=== PATIENT | male | born 1995 | race Caucasian/White ===

== ENCOUNTER 2018-12-17 09:41 | Emergency (ER) | payer OTHER ==
[2018-12-17 09:39] LABS: AMYLASE 625 IU/L (25-115)
[2018-12-17] MEDS ORDERED: ONDANSETRON HCL 4 MG/2 ML SOL ONE (09:51)
[2018-12-17] MEDS ORDERED: ONDANSETRON HCL 4 MG/2 ML SOL IV ONE (09:52)
[2018-12-17] MEDS: SODIUM CHLORIDE 0.9% FLUSH 10 ML SOL IV PRN ×2 (10:00→10:05)
[2018-12-17] MEDS ORDERED: SODIUM CHLORIDE 0.9% 1000ML 1,000 ML IV ONE ×4 (10:00→13:00)
[2018-12-17] MEDS ORDERED: MORPHINE SULFATE 10 MG/ML SOL IV ONE (10:00)
[2018-12-17] MEDS ORDERED: MORPHINE SULFATE 10 MG/ML SOL ONE (10:14)
[2018-12-17] MEDS ORDERED: SODIUM CHLORIDE 0.9% 50 ML 25 ML IV PRN (10:48)
[2018-12-17] MEDS ORDERED: HYDROMORPHONE 1 MG/ML SYRINGE IV PRN (10:49)
[2018-12-17] MEDS ORDERED: HYDROMORPHONE 1 MG/ML SYRINGE ONE (10:53)
[2018-12-17] MEDS ORDERED: VANCOMYCIN HCL 500 MG PDS 1,000 MG in SODIUM CHLORIDE 0.9% 250 ML 250 ML IV SCH (11:00)
[2018-12-17] MEDS ORDERED: PIPERACILLIN/TAZOBACT 3.375 GM 3.375 GM in SODIUM CHLORIDE 0.9% 100 ML 100 ML IV SCH (11:00)
[2018-12-17] MEDS ORDERED: PIPERACILLIN/TAZOBACT 3.375 GM PDS IV ONE (11:02)
[2018-12-17 11:07] LABS: HEMATOCRIT 51 % (39-53); HEMOGLOBIN 17.2 gm/dl (13.5-17.7); MEAN CORPUSCULAR HEMOGLOBIN 28.8 pg (27.0-32.0); MEAN CORPUSCULAR HGB CONC 33.3 gm/dl (32.0-36.0); MEAN CORPUSCULAR VOLUME 86 fL (80-100)
[2018-12-17 11:12] LABS: LACTIC ACID 3.1 mMol/L (0.0-2.0)
[2018-12-17 11:23] LABS: BAND NEUTROPHILS % (MANUAL) 36 %; NEUTROPHILS % (MANUAL) 50 % (37-80)
[2018-12-17 11:24] LABS: BASOPHILS % (MANUAL) 0 % (0-3); EOSINOPHILS % (MANUAL) 0 % (0-9); LYMPHOCYTES % (MANUAL) 3 % (10-50); MONOCYTES % (MANUAL) 11 % (0-12); NORMAL RBCS PRESENT
[2018-12-17 11:32] VITALS: RESP 16; TEMP 97.7
[2018-12-17] MEDS ORDERED: VANCOMYCIN HYDROCHLORIDE 500 MG PDS IV ONE (11:34)
[2018-12-17 11:39] LABS: ALBUMIN 3.2 gm/dl (3.4-5.0); BILIRUBIN,DIRECT 0.3 mg/dl (0.0-0.2); BILIRUBIN,TOTAL 1.4 mg/dl (0.2-1.0); CALCIUM 9.6 mg/dl (8.5-10.1); CARBON DIOXIDE 26.2 mEq/L (21-32); CREATININE 2.45 mg/dl (0.80-1.30); TOTAL PROTEIN 7.1 gm/dl (6.4-8.2)
[2018-12-17 11:55] LABS: CRP INFLAMMATORY 48.11 mg/dl (0.00-0.33)
[2018-12-17 12:25] VITALS: O2SAT 94
[2018-12-17 13:28] VITALS: BP 129/59; PULSE 117
== END 2018-12-17 13:04 | disposition short-term general hospital (02) | DRG 439 ==
LOC: ED 09:41
DX: K85.90 Acute pancreatitis without necrosis or infection, unspecified (principal); N17.9 Acute kidney failure, unspecified; E87.6 Hypokalemia; R10.9 Unspecified abdominal pain; R11.2 Nausea with vomiting, unspecified; D72.829 Elevated white blood cell count, unspecified; K80.80 Other cholelithiasis without obstruction
CPT/HCPCS: 36415; 74176; 80053; 82150; 82248; 85007; 85027; 85651; 87040; 96365; 96366; 96374; 96375; 99291; J2270; J2405; J2543; J3370; J1170

== ENCOUNTER 2019-01-16 09:27 | Emergency (ER) | payer MEDICARE ==
[2019-01-16] MEDS ORDERED: SODIUM CHLORIDE 0.9% 1000ML 1,000 ML IV SCH (10:00)
[2019-01-16 10:06] LABS: BASOPHILS % (AUTO) 1 % (0-3); EOSINOPHILS % (AUTO) 0 % (0-9); HEMATOCRIT 33 % (39-53); HEMOGLOBIN 11.1 gm/dl (13.5-17.7); LYMPHOCYTES % (AUTO) 4.9 % (10-50); MEAN CORPUSCULAR HEMOGLOBIN 27.9 pg (27.0-32.0); MEAN CORPUSCULAR HGB CONC 33.5 gm/dl (32.0-36.0); MEAN CORPUSCULAR VOLUME 83 fL (80-100); MONOCYTES % (AUTO) 8.7 % (0-12); NEUTROPHILS % (AUTO) 85.7 % (37-80)
[2019-01-16 10:18] LABS: ALBUMIN 2.3 gm/dl (3.4-5.0); BILIRUBIN,TOTAL 1.6 mg/dl (0.2-1.0); CALCIUM 8.8 mg/dl (8.5-10.1); CARBON DIOXIDE 25.4 mEq/L (21-32); CREATININE 1.08 mg/dl (0.80-1.30); POTASSIUM 3.5 mMol/L (3.5-5.1); TOTAL PROTEIN 7.5 gm/dl (6.4-8.2)
[2019-01-16] MEDS ORDERED: HYDROMORPHONE 1 MG/ML SYRINGE IV PRN (10:32)
[2019-01-16] MEDS ORDERED: ONDANSETRON HCL 4 MG/2 ML SOL IV ONE (10:34)
[2019-01-16] MEDS ORDERED: SODIUM CHLORIDE 0.9% FLUSH 10 ML SOL IV PRN (10:34)
[2019-01-16] MEDS ORDERED: HYDROMORPHONE 1 MG/ML SYRINGE ONE (10:37)
[2019-01-16] MEDS ORDERED: ONDANSETRON HCL 4 MG/2 ML SOL ONE (10:37)
[2019-01-16] MEDS ORDERED: PIPERACILLIN/TAZOBACT 3.375 GM 3.375 GM in SODIUM CHLORIDE 0.9% 100 ML 100 ML IV ONE (12:09)
[2019-01-16] MEDS ORDERED: PIPERACILLIN/TAZOBACT 3.375 GM PDS IV ONE (12:09)
[2019-01-16 12:55] VITALS: TEMP 97.1
[2019-01-16 16:47] VITALS: BP 138/68; PULSE 112; RESP 18; O2SAT 94
== END 2019-01-16 14:57 | disposition short-term general hospital (02) | DRG 440 ==
LOC: ED 09:27
DX: K85.91 Acute pancreatitis with uninfected necrosis, unspecified (principal)
CPT/HCPCS: 36415; 74177; 80053; 82962; 85025; 96365; 96374; 96375; 99285; 99291; J2405; J2543; Q9967; J1170